=== PATIENT | male | born 1965 | race Caucasian/White ===

== ENCOUNTER → 2017-01-23 | Outpatient (CLI) | payer OTHER ==
[~2017-01-23] VITALS: Ht 190.5 cm; Wt 109.8 kg
[~2017-01-23] MED LIST: ASPI81TA25 PO; BUPRTAB51 PO; LEVO100T PO; OMEGCAP2 PO; SIMV20TA2 PO
[2017-01-23 15:38] VITALS: BP 129/87; PULSE 76; Ht 190.5 cm; Wt 109.8 kg
== END | disposition home or self-care (01) ==
LOC: C.NEUR 14:31
PROVIDERS: ATTEND Internal Medicine Pulmonary Disease
DX: G47.33 Obstructive sleep apnea (adult) (pediatric) (principal)

== ENCOUNTER → 2018-03-01 | Outpatient (CLI) | payer OTHER ==
[2018-03-01 15:48] VITALS: BP 130/87; PULSE 73; Ht 190.5 cm
== END | disposition home or self-care (01) ==
LOC: C.NEUR 15:05
PROVIDERS: ATTEND Internal Medicine Pulmonary Disease
DX: G47.33 Obstructive sleep apnea (adult) (pediatric) (principal); R53.83 Other fatigue